=== PATIENT | female | born 1985 | race African-American/Black ===

== ENCOUNTER 2017-07-20 19:30 | Emergency (ER) | payer MEDICAID ==
[~2017-07-20] VITALS: Ht 182.9 cm; Wt 91.0 kg
[~2017-07-20 19:30] MED LIST: PRENAT PO
[2017-07-20 19:38] VITALS: Ht 182.9 cm; Wt 91.0 kg
[2017-07-20] MEDS ORDERED: TRAM50TA2 PO (23:09)
[2017-07-20] MEDS ORDERED: IBUP-1542 PO (23:09)
--- NOTE | 2017-07-20 23:24 | ERD ---
ER Documentation Chief Complaint Date/Time DATE: 07/20/17 TIME: 23:18 Chief Complaint Pt reports lump in r breast causing r arm/shoulder pain HPI 32-year-old female presents to emergency department for complaints of a lump in the right lower quadrant of her right breast area she noticed it the last 3 days , worse today. Patient states that it is causing her pain, it travels to her right arm and right shoulder. Patient describes the pain as sharp pain, 6/10 scale, not better with anything. Patient denies any numbness or tingling. Patient denies any fever or chills. Patient denies any nipple discharge or deformity. ROS All systems reviewed and are negative except as per history of present illness. Medications Home Meds Active Scripts Tramadol HCl (Tramadol HCl) 50 Mg Tablet, 50 MG PO Q6 Y for SEVERE PAIN LEVEL 7- 10, #20 TAB Prov:SANTIAGO VILLALOBOS NP 07/20/17 Ibuprofen* (Motrin*) 600 Mg Tab, 600 MG PO Q6H Y for PAIN AND OR ELEVATED TEMP, #30 TAB Prov:SANTIAGO VILLALOBOS SOUND ENGINEER 07/20/17 Reported Medications Multivit/Min/Fol Ac/Iron/Pren* ( S*) 1 Tab Tab, 1 TAB PO DAILY, #1 TAB 06/06/15 Allergies Allergies: Coded Allergies: No Known Allergy (Unverified , 06/06/15) PMhx/Soc Medical and Surgical Hx: pt denies Medical Hx, pt denies Surgical Hx FmHx Family History: No coronary disease, No diabetes, No other Physical Exam Vitals Vital Signs Date Time Temp Pulse Resp B/P Pulse Ox O2 Delivery O2 Flow Rate FiO2 07/20/17 19:38 98.3 64 16 103/58 99 Physical Exam GENERAL: The patient is well developed and appropriate for usual state of health, in no apparent distress. CHEST: Clear to auscultation bilaterally. There are no rales, wheezes or rhonchi. Noted 4 cm cystic structure noted RLQ of right breast, no fluctuance, no redness, no nipple discharge. HEART: Regular rate and rhythm. No murmurs, clicks, rubs or gallops. No S3 or S4. ABDOMEN: Soft, nontender and nondistended. Good bowel sounds. No rebound or guarding. No gross peritonitis. No gross organomegaly or masses. No Cotter sign or McBurney point tenderness. BACK: No midline or flank tenderness. EXTREMITIES: Equal pulses bilaterally. There is no peripheral clubbing, cyanosis or edema. No focal swelling or erythema. Full range of motion. Grossly neurovascularly intact. NEURO: Alert and oriented. Cranial nerves 2-12 intact. Motor strength in all 4 extremities with 5/5 strength. Sensation grossly intact. Normal speech and gait. SKIN: There is no apparent rash or petechia. The skin is warm and dry. HEMATOLOGIC AND LYMPHATIC: There is no evidence of excessive bruising or lymphedema. No gross cervical, axillary, or inguinal lymphadenopathy. Procedures/MDM Medical decision making: Patient has a palpable lump in the right breast area, no fluctuance noted, no nipple discharge, no deformity, no induration. No symptoms of any abscess, no symptoms of any acute bacterial infection. Prescription was given tramadol and ibuprofen for pain, was recommended to see gynecology specialist for possible mammogram and ultrasound of the breast for further evaluation of the lump. Possible biopsy was recommended. Patient was advised to return to emergency department for any worsening symptoms. Disposition: Home. Stable. Departure Diagnosis: Primary Impression: Breast lump Condition: Stable Patient Instructions: Breast Mass, Uncertain Cause Referrals: [employer] MANAGER [place] [id number] [facility] [address] [place], [place] [id number] OFFICE FAX TODD [facility] [address] [place], [place] [id number] [facility] [address] [place], [place] [id number] RIKKI HUERTA [address] [facility] [id number] [address] [place], [place] [phone] [facility] [address] [place], [place] [phone] [address] [facility] [id number] - ELIAN SIMMONS [address], [facility] [phone] DR BURRELL, [place] [address] [facility]. [address], [facility] [address] [address] ROMAN, [place] [address] [place], [place] [phone] Additional Instructions: see Gyne doctor for possible breast us or mammogram SANTIAGO VILLALOBOS NP Jul 20, 2017 23:24
[2017-07-20 23:31] VITALS: BP 110/61; PULSE 79; RESP 18; TEMP 98
== END 2017-07-20 23:33 | disposition home or self-care (01) ==
LOC: FTE 19:30
DX: N63.10 Unspecified lump in the right breast, unspecified quadrant (principal)
CPT/HCPCS: 99283

== ENCOUNTER 2018-07-29 20:11 | Emergency (ER) | END 2018-07-30 00:14 | disposition home or self-care (01) ==